=== PATIENT | female | born 1995 | race Hispanic/Latino ===

== ENCOUNTER 2022-06-21 00:45 | Day surgery (SDC) | payer BC ==
[2022-06-21 01:10] VITALS: BMI 32.7
[2022-06-21] MEDS ORDERED: hydrALAZINE 20 MG/ML VIAL SLOW IVP PRN (01:28)
[2022-06-21 02:02] LABS: Fetal Membranes Rupture No Membranes Rupture (No Rupture)
[2022-06-21 02:19] LABS: Bilirubin Neg (Negative); Blood, Urine 10 (Negative); Clarity Clear (Clear); Glucose, Urine (Dipstick) Normal (Negative); Ketone, Urine Negative (Negative); Leukocyte Negative (Negative); Nitrite Negative (Negative); Protein, Urine (Dipstick) Negative (Neg-Trace); Urobilinogen Normal mg/dL (Less than 2)
[2022-06-21 02:26] LABS: Bacteria/HPF None Seen HPF (None Seen); CAUTI Indications for Culture Pregnancy; Squamous Epithelial 0-3 HPF (0-3); WBC/HPF 0-3 HPF (0-3)
[2022-06-21 02:28] LABS: Urine Culture Reflex Yes Yes
== END 2022-06-21 02:45 | disposition home or self-care (01) ==
LOC: CSHLD/OP 00:45
PROVIDERS: ATTEND Obstetrics & Gynecology
DX: Z03.71 Encounter for suspected problem with amniotic cavity and membrane ruled out (principal); O23.43 Unspecified infection of urinary tract in pregnancy, third trimester; R35.0 Frequency of micturition; Z79.899 Other long term (current) drug therapy; Z3A.32 32 weeks gestation of pregnancy
CPT/HCPCS: 51701; 81001; 84112; 87086; 99283

== ENCOUNTER 2024-10-16 00:49 | Observation (INO) | payer BC ==
[2024-10-16 02:36] LABS: Glucose, Urine (Dipstick) Normal (Negative); Leukocyte 25 (Negative); Protein, Urine (Dipstick) 15 mg/dl (Neg-Trace); Specific Gravity, Urine 1.010 (1.005-1.030)
[2024-10-16 02:42] LABS: Pregnancy Test - Urine (BHCG) Negative (Negative); Pregu Control Background? CLEAR/WHITE (CLR/WHITE); Pregu Control Bar Appear? YES (CONTROL BAR)
[2024-10-16 02:43] LABS: Bacteria/HPF None Seen HPF (None Seen); CAUTI Indications for Culture Pelvic or flank pain; RBC/HPF 0-3 HPF (0-3); WBC/HPF 0-3 HPF (0-3)
[2024-10-16 02:44] LABS: Urine Culture Reflex No No
[2024-10-16 03:45] LABS: #Basophils 0.04 10x3/uL (0.0-0.2); #Eosinophils 0.19 10x3/uL (0.0-0.5); #Monocytes 1.23 10x3/uL (0.0-1.1); #Neutrophils 11.43 10x3/uL (1.5-8.4); %Basophils 0.2 % (0.0-2.0); %Eosinophils 1.1 % (0.0-6.0); %Lymphocytes 23.5 % (18.0-47.0); %Monocytes 7.3 % (0.0-10.0); %Neutrophils 67.5 % (40.0-75.0); Hematocrit 40.0 % (34.9-44.5); Hemoglobin 13.6 g/dL (12.0-15.5); Mean Corpuscular Hemoglobin 29.6 pg (27.0-33.0); Mean Corpuscular Volume 87.0 fL (81.6-98.3); Platelet Count 332 10x3/uL (150-450); Red Blood Cell (RBC) Count 4.60 10x6/uL (3.90-5.03); White Blood Cell (WBC) Count 16.95 10x3/uL (3.5-10.5)
[2024-10-16 03:55] LABS: ALT (SGPT) 21 U/L (Less than 34); AST (SGOT) 26 U/L (11-34); Albumin 4.3 g/dL (3.1-4.5); Alkaline Phosphatase 60 U/L (40-110); Anion Gap 14 mmol/L (10-20); BUN (Urea Nitrogen) 5 mg/dL (7.0-18.7); Bilirubin, Total 0.3 mg/dL (0.3-1.2); Calc. Creatinine Clearance 0 mL/min (70-130); Calcium 9.7 mg/dL (7.8-10.44); Carbon Dioxide 24 mmol/L (22-29); Chloride 104 mmol/L (98-107); Globulin 4.0 g/dL (2.4-3.5); Glucose 79 mg/dL (70-105); Lipase 11 U/L (8-78); Potassium 3.6 mmol/L (3.5-5.1); Sodium 138 mmol/L (136-145)
[2024-10-16] MEDS ORDERED: Iopamidol 300 61% 100 ML VIAL FS ONE (11:32)
[2024-10-16] MEDS ORDERED: Lidocaine 1% PF 5 ML VIAL ONE (11:57)
[2024-10-16] MEDS ORDERED: SUCCINYLCHOLINE/SOD CL,ISO/PF 200 MG/10 ML SYRINGE FS ONE (11:57)
[2024-10-16] MEDS ORDERED: PROPOFOL 20 ML ONE (11:57)
[2024-10-16] MEDS ORDERED: Rocuronium Bromide 10 MG/ML (10ML VIAL) ONE (11:57)
[2024-10-16] MEDS ORDERED: Bupivacaine HCl 0.5%/Epinephrine 1:200,000/PF 30 ml Vial ONE (12:02)
[2024-10-16] MEDS ORDERED: Ondansetron PF 4 MG/2 ML Vial ONE ×2 (12:36→13:28)
[2024-10-16] MEDS ORDERED: SUGAMMADEX SODIUM 200 MG/2 ML VIAL ONE (13:00)
[2024-10-16] MEDS ORDERED: Ketorolac Tromethamine 30 MG (1 mL) VIAL ONE (13:00)
== END 2024-10-16 15:50 | disposition home or self-care (01) ==
LOC: CSHERS 00:49 → CSHERHOLD 05:52
PROVIDERS: ADMIT Surgery; ATTEND Surgery
PROC: 0DTJ4ZZ Resection of Appendix, Percutaneous Endoscopic Approach (ICD-10-PCS; principal; 2024-10-16)
DX: K35.80 Unspecified acute appendicitis (principal); Z90.89 Acquired absence of other organs
CPT/HCPCS: 36416; 74177; 80053; 81001; 81025; 83690; 85025; 88304; 96361; 96365; 96375; A4649; G0378; J0694; J1100; J1885; J2250; J2270; J2405; J2543; J2550; J2704; J3010; Q9967